=== PATIENT | female | born 1960 | race Caucasian/White ===

== ENCOUNTER 2017-12-18 14:55 | Emergency (ER) | payer OTHER ==
[~2017-12-18] VITALS: Ht 172.7 cm; Wt 71.2 kg
[2017-12-18 15:15] VITALS: BP 153/70
[2017-12-18] MEDS ORDERED: Sodium Chloride 500ML 500 ML IV ONE (15:30)
--- NOTE | 2017-12-18 15:58 | Emergency Room Report ---
History of Present Illness General Chief Complaint: Generalized Weakness Source: Patient Present Illness HPI 57-year-old female presents ED for evaluation. Patient brought in by EMS. Patient states she had a ocular migraine today at work. Started approximately 45 minutes ago at work. Patient presenting with confusion and slurred speech. Patient states symptoms have since resolved. States her migraine is getting better. States that the spots, blurry vision, slurred speech are typical of her ocular migraine. Patient seen by neurology. Has not had a episode in 1 year now. Denies any headache. Denies any nausea or vomiting. Denies any neck stiffness. Denies any fevers or chills. No other aggravating or relieving factors. Denies any other associated symptoms Allergies: Coded Allergies: DOXYCYCLINE (Verified Allergy, Unknown, 12/18/17) ERYTHROMYCIN BASE (Verified Allergy, Unknown, 12/18/17) PENICILLINS (Verified Allergy, Unknown, 12/18/17) TETRACYCLINE (Verified Allergy, Unknown, 12/18/17) Patient History Past Medical History: migraines Past Surgical History: none Pertinent Family History: none Social History: Denies: smoking, alcohol use, drug use Now: No Immunizations: UTD Reviewed Nursing Documentation: PMH: Agreed, PSxH: Agreed Review of Systems All Other Systems: negative except mentioned in HPI Physical Exam Vital Signs Date Time Temp Pulse Resp B/P (MAP) Pulse Ox O2 Delivery O2 Flow Rate FiO2 12/18/17 14:59 98.3 80 16 157/103 100 Room Air 98.2 Sp02 EP Interpretation: reviewed, normal General Appearance: no apparent distress, alert, GCS 15, non-toxic Head: normocephalic, atraumatic Eyes: bilateral eye normal inspection, bilateral eye PERRL ENT: hearing grossly normal, normal pharynx, no angioedema, normal voice Neck: full range of motion, no meningismus, supple/symm/no masses Respiratory: chest non-tender, lungs clear, normal breath sounds, speaking full sentences Cardiovascular #1: regular rate, rhythm, no edema Cardiovascular #2: 2+ carotid (R), 2+ carotid (L), 2+ radial (R), 2+ radial (L) , 2+ dorsalis pedis (R), 2+ dorsalis pedis (L) Gastrointestinal: normal bowel sounds, non tender, soft, non-distended, no guarding, no rebound Rectal: deferred Genitourinary: normal inspection, no CVA tenderness Musculoskeletal: back normal, gait/station normal, normal range of motion, non- tender Neurologic: alert, oriented x3, responsive, motor strength/tone normal, sensory intact, speech normal Psychiatric: judgement/insight normal, memory normal, mood/affect normal, no suicidal/homicidal ideation Reflexes: 3+ bicep (R), 3+ bicep (L), 3+ tricep (R), 3+ tricep (L), 3+ knee (R) , 3+ knee (L) Skin: normal color, no rash, warm/dry, well hydrated Lymphatic: no adenopathy Medical Decision Making Diagnostic Impression: Primary Impression: Ocular migraine ER Course Hospital Course 57-year-old female presents ED complaining of ocular migraine. Photophobia and spots with slurred speech. Improved now Differential diagnoses include: tension headache, migraine, dehydration Clinical course Patient placed on stretcher. After initial history, physical exam reveals a middle-aged female in no acute distress. Extraocular movement intact bilaterally. Normal visual acuity. No photophobia. No neck stiffness. Remainder physical exam unremarkable Given that migraine is starting to resolve I see no reason to image or check labs. Patient agrees. Given IV fluids here and observed Upon reassessment patient states pain has improved. Patient feels better wishes to go home. Given the lack of fever, nuchal rigidity or neurological findings my suspicion for intracranial pathology is low patient be safely discharged to home. i. I feel this is a highly complex case requiring extensive working including EKG/Rhythm strip, Xray/CT/US, Blood/urine lab work, repeat exams while in ED, and administration of strong opiates/narcotics for pain control, admission to hospital or close patient follow up. Diagnosis - ocular migraine stable and discharged to home with Rx Imitrex. f/up with PMD. return to ED if symptoms recur/worsen. Last Vital Signs Date Time Temp Pulse Resp B/P (MAP) Pulse Ox O2 Delivery O2 Flow Rate FiO2 12/18/17 15:15 98.8 80 20 153/70 100 Room Air 98.8 Status: improved Disposition: HOME, SELF-CARE Condition: Stable Scripts Sumatriptan Succinate* (IMITREX*) 50 Mg Tablet 50 MG ORAL DAILY PRN MIGRAINE, #30 TAB Prov: TANVIR RODRIGUEZ M.D. 12/18/17 TANVIR RODRIGUEZ M.D. Dec 18, 2017 15:58
[2017-12-18 16:00] VITALS: BP 158/75
[2017-12-18] MEDS ORDERED: IMITREX50 MG ORAL (16:14)
== END 2017-12-18 16:38 | disposition home or self-care (01) ==
LOC: EDBD 14:55 → EMR 16:30
DX: G43.809 Other migraine, not intractable, without status migrainosus (principal); Z88.0 Allergy status to penicillin; Z88.1 Allergy status to other antibiotic agents
CPT/HCPCS: 96361; 96374; 99284